=== PATIENT | male | born 1990 | race Caucasian/White ===

== ENCOUNTER → 2019-09-15 12:44 | Outpatient (CLI) | payer MEDICAID, SELFPAY ==
--- NOTE | 2019-09-15 12:45 | RAD_ITS ---
STUDY: X-RAY - RIGHT WRIST REASON FOR EXAM: Male, 29 years old. Punched a wall yesterday, pain across 1st mc bones and carpal bones TECHNIQUE: 3 view(s) of the wrist were obtained. COMPARISON: None. FINDINGS: Normal visualized distal radius and ulna. Normal radiocarpal articulation. Normal distal radioulnar articulation. Normal carpal bones. Normal carpal articulations. Normal carpometacarpal articulation of the thumb. Normal second through fifth carpometacarpal articulations. Normal visualized metacarpal bones. The soft tissue structures are unremarkable. RAD/Wrist min 3 Views IMPRESSION: Normal x-ray examination of the wrist. Electronically Signed: Cedric Montez, at 13:34 EDT , Service support ,
--- NOTE | 2019-09-15 12:45 | RAD_ITS ---
STUDY: X-RAY - RIGHT HAND REASON FOR EXAM: Male, 29 years old. Punched a wall yesterday, pain 1st mc area and across carpal bones TECHNIQUE: 3 view(s) of the hand. COMPARISON: None. FINDINGS: Normal radiocarpal articulation. Normal distal radioulnar joint. Normal visualized carpal bones. Normal carpal articulations Normal carpometacarpal articulation of the thumb. Normal second through fifth carpometacarpal joints. Normal metacarpi. Normal metacarpophalangeal joint of the thumb. Normal interphalangeal joint of the thumb. Normal proximal and distal phalanges of the thumb. Normal metacarpophalangeal joints of the second through fifth fingers. Normal proximal and distal interphalangeal joints of the second through fifth fingers. Normal phalanges of the second through fifth fingers. Soft tissue swelling. RAD/Hand Min 3 Views IMPRESSION: Soft tissue swelling. Electronically Signed: Cedric Montez, at 13:35 EDT , Service support ,
== END ==
PROVIDERS: PCP Family Medicine; Referring Provider Physician Assistant; Visit Provider Physician Assistant
DX: S69.91XA Unspecified injury of right wrist, hand and finger(s), initial encounter (principal)
CPT/HCPCS: 73110; 73130

== ENCOUNTER → 2019-10-04 13:41 | Outpatient (CLI) | payer MEDICAID, SELFPAY ==
[2019-10-04 07:53] VITALS: BMI 21.4
--- NOTE | 2019-10-04 13:43 | RAD_ITS ---
STUDY: X-RAY - RIGHT WRIST REASON FOR EXAM: Male, 29 years old. Pain after trauma TECHNIQUE: 3 view(s) of the wrist were obtained. COMPARISON: 09/15/2019 FINDINGS: Normal visualized distal radius and ulna. Normal radiocarpal articulation. Normal distal radioulnar articulation. Normal carpal bones. Normal carpal articulations. Normal carpometacarpal articulation of the thumb. Normal second through fifth carpometacarpal articulations. Normal visualized metacarpal bones. The soft tissue structures are unremarkable. RAD/Wrist min 3 Views IMPRESSION: Normal x-ray examination of the wrist. Electronically Signed: Cali Locke MD at 13:54 EDT , Service support ,
== END ==
PROVIDERS: PCP Family Medicine; Referring Provider Orthopaedic Surgery; Visit Provider Orthopaedic Surgery
DX: M79.641 Pain in right hand (principal)
CPT/HCPCS: 73110

== ENCOUNTER → 2019-10-16 07:37 | Outpatient (CLI) | payer MEDICAID, SELFPAY ==
[2019-10-04 07:53] VITALS: BMI 21.4
--- NOTE | 2019-10-16 07:38 | MRI_ITS ---
STUDY: MRI RIGHT WRIST WITHOUT CONTRAST REASON FOR EXAM: Male, 29 years old. injury. Pain. TECHNIQUE: Standardized fat and water weighted pulse sequences were obtained in all 3 orthogonal planes. COMPARISON: X-ray October 04, 2019 FINDINGS: Normal visualized distal radius and ulna. There is a joint effusion of the distal radioulnar articulation with capsular distension. There is thinning with partial tear adjacent to the radial insertion of the triangular fibrocartilage. This was series 7 image 28/48 Normal carpal bones. Normal radiocarpal, intercarpal and midcarpal articulations. Normal pisotriquetral articulation. Normal visualized interosseous scapholunate ligament. Normal visualized dorsal (extrinsic) ligaments. Normal visualized volar (extrinsic) ligaments. Normal extensor tendons. Normal flexor tendons. Normal carpal tunnel with a normal median nerve. Normal carpometacarpal articulation of the thumb. Normal second through fifth carpometacarpal articulations. Marrow edema with fracture of the base of the fourth metacarpal, series 5 images 11/07 and 12/08. Mild marrow edema of the base of the second metacarpal. There is no demonstrated soft tissue abnormality. MRI/Upper Ext Joint Only(Routine) IMPRESSION: Fracture of the base of the fourth metacarpal. Bone bruising of the base of the second metacarpal. Partial tear of the triangle fibrocartilage complex. Electronically Signed: Dakotah Staton MD at 14:45 EDT , Service support ,
== END ==
PROVIDERS: PCP Family Medicine; Visit Provider Orthopaedic Surgery
DX: S63.501A Unspecified sprain of right wrist, initial encounter (principal)
CPT/HCPCS: 73221